=== PATIENT | male | born 2000 | race Caucasian/White ===

== ENCOUNTER 2021-05-31 16:01 | Emergency (ER) | payer SELFPAY ==
[~2021-05-31] VITALS: Ht 182.9 cm; Wt 74.8 kg
[2021-05-31 17:43] VITALS: BP 144/73
--- NOTE | 2021-05-31 17:49 | NUR ---
PT TO AWAIT IN LOBBY
--- NOTE | 2021-05-31 17:57 | NUR ---
NOE KOENIG EXAMINING PT
[2021-05-31] MEDS ORDERED: HYDR25CA1 PO (18:02)
--- NOTE | 2021-05-31 18:35 | NUR ---
Patient discharged with v/s stable. Written and verbal after care instructions given and explained. Patient alert, oriented and verbalized understanding of instructions. Ambulatory with steady gait. All questions addressed prior to discharge. ID band removed. Patient advised to follow up with PMD. Rx of Hydroxyzine given. Patient educated on indication of medication including possible reaction and side effects. Opportunity to ask questions provided and answered.
== END 2021-05-31 18:35 | disposition home or self-care (01) ==
LOC: MED 16:01
DX: T40.8X1A Poisoning by lysergide [LSD], accidental (unintentional), initial encounter (principal); Z79.899 Other long term (current) drug therapy; Y92.89 Other specified places as the place of occurrence of the external cause
CPT/HCPCS: 99283